=== PATIENT | male | born 1960 | race African-American/Black ===

== ENCOUNTER 2020-07-26 13:34 | Emergency (ER) | payer BC ==
[~2020-07-26] VITALS: Ht 175.3 cm; Wt 135.7 kg
[2020-07-26] MEDS ORDERED: ACETAMINOPHEN 500 MG TABLET PO ONE (15:30)
[2020-07-26] MEDS ORDERED: IBUPROFEN 400 MG TABLET. PO ONE (15:30)
[2020-07-26 15:39] LABS: INFLUENZA A PATIENT POSITIVE (NEGATIVE); INFLUENZA B PATIENT NEGATIVE (NEGATIVE)
--- NOTE | 2020-07-26 16:05 | ED.ADGEN ---
Past Medical History Past Medical History: Hypertension Past Surgical History: Appendectomy Additional Past Surgical Histo: KNEE, vein surgery left leg Smoking Status: Never Smoker Alcohol Use: None Drug Use: None General Adult EDM: Chief Complaint: COUGH HPI: HPI: Patient is a 59 year old AA male who presents to the emergency department with complaints of a dry cough, shortness of breath, body aches, and fatigue that has been worse over the last 5 days. Patient states he initially started feeling ill about a week ago. He thought that it was just due to him being overweight. He denies any chest pain, palpitations, abdominal pain, nausea, vomiting, diarrhea, rash, or sore throat. He states he has felt hot and has been chilling but denies measured fever. He currently denies any pain. He denies any known Covid exposure. Review of Systems: Review of Systems: Complete ROS is negative unless otherwise noted in HPI. Current Medications: Current Medications Medications (Trade) Dose Ordered Sig/Andrew Start Time Stop Time Status Last Admin Dose Admin Acetaminophen (Tylenol) 1,000 mg 1X ONCE 07/26/20 15:30 07/26/20 15:31 DC Ibuprofen (Motrin) 800 mg 1X ONCE 07/26/20 15:30 07/26/20 15:31 DC Allergies: Allergies: Allergies Coded Allergies Type Severity Reaction Last Updated Verified No Known Drug Allergies 07/26/20 No Physical Exam: PE: See Above Constitutional: Well developed, well nourished, no acute distress, ill appearance, obese HENT: Normocephalic, atraumatic, bilateral external ears normal, nose congested Eyes: PERRLA, conjunctiva injected bilaterally, no discharge. [] Neck: Normal range of motion, no stridor. [] Cardiovascular:Heart rate regular rhythm Lungs & Thorax: Respirations even and unlabored, no retractions, no respiratory distress Skin: Warm, dry, no erythema, no rash. [] Back: No tenderness Extremities: No cyanosis, ROM intact Neurologic: Alert and oriented X 3, no focal deficits noted. [] Psychologic: Affect normal, judgement normal, mood normal. Current Patient Data: Labs: Laboratory Tests Test 07/26/20 14:55 Influenza Type A Antigen Positive (NEGATIVE) Influenza Type B Antigen Negative (NEGATIVE) Vital Signs: Vital Signs Date Time Temp Pulse Resp B/P (MAP) Pulse Ox O2 Delivery O2 Flow Rate FiO2 07/26/20 14:44 103.0 112 24 149/68 (95) 97 Room Air 103.0 EKG: EKG: [] Heart Score: Risk Factors: Risk Factors: DM, Current or recent (<one month) smoker, HTN, HLP, family history of CAD, obesity. Risk Scores: Score 0 - 3: 2.5% MACE over next 6 weeks - Discharge Home Score 4 - 6: 20.3% MACE over next 6 weeks - Admit for Clinical Observation Score 7 - 10: 72.7% MACE over next 6 weeks - Early Invasive Strategies Radiology/Procedures: Radiology/Procedures: [] Course & Med Decision Making: Course & Med Decision Making Pertinent Labs and Imaging studies reviewed. (See chart for details) [] Dragon Disclaimer: Dragon Disclaimer: This electronic medical record was generated, in whole or in part, using a voice recognition dictation system. Departure Departure Impression: Primary Impression: Influenza A Additional Impressions: Person under investigation for COVID-19 Fever Disposition: 01 DC HOME SELF CARE/HOMELESS Condition: STABLE Referrals: NO PCP (PCP) Patient Instructions: Influenza A (H1N1) Additional Instructions: Alternate Tylenol or ibuprofen as needed for pain/fever. Increase clear fluids. Avoid airway triggers such as smoke, fragrance, dust, and pollen. May take [id number] cough suppressants as needed. Follow-up with your primary care doctor if symptoms persist, return to the ER if symptoms worsen. You have been tested for or diagnosed with COVID-19. It is an infection caused by a new type of coronavirus. COVID-19 will cause cold-like or mild flu symptoms in most. It can cause more severe symptoms like problems breathing in some. There is no treatment for COVID-19. The body will clear the infection over time. Self-care will help to ease discomfort. Steps to Take: Self-Care Rest as needed. Healthy habits may help you feel better. Steps include: Choose healthy foods including fruits and vegetables. Drink water throughout the day. Get plenty of sleep each night. If you smoke, try to quit. It may ease breathing. Avoid alcohol. Keep Others Healthy The virus can spread to others. Droplets are released every time you sneeze or cough. The droplets can get into the mouth, nose, or eyes of people near you and lead to infection. To lower the chances of spreading COVID-19 to others: Stay at home until your doctor has said it is safe to leave. If you tested positive this will mean staying isolated until both of the following are true: At least 7 days have passed since the start of illness. You are free of fever for at least 72 hours without the use of medicine. During this time: - Avoid public areas, events, or transportation. Do not return to work or school until your doctor has said it is safe to do so. - Call ahead if you need to go to a medical center. Let them know you may have COVID-19. It will help them guide you where to go. They may also ask you to wear a facemask when you come to the office. - If you call for emergency medical services, let them know you may have COVID- 19. While at home: - Try to avoid close contact with others. Stay about 6 feet away. - If possible, spend most of your time in a separate room from others. - Use a face mask if you will be in close contact with others such as sharing a room or vehicle. - Have someone wipe down common surfaces in the home. Use household child day care provider every day on areas like doorknobs, counters, or sinks. - Cough or sneeze into a tissue. Throw the tissue away right after use. If a tissue is not available, cough or sneeze into your elbow. - Wash your hands often. Wash them after sneezing or coughing. Use soap and water and wash for at least 20 seconds. Alcohol based hand spice cleaner can be used if soap and water is not available. - Do not prepare food for others. Avoid sharing personal items like forks, spoons, or toothbrushes. - Avoid close contact with pets while you are sick. There is no evidence of the virus passing to pets. This is a safety step until more is known about this virus. Isolation can be frustrating. Social interaction can help. Keep in touch with friends and family through phone and tech options. You can still interact with others in your home, just keep a safe distance of about 6 feet. Follow-up: Your doctors office will check in with you to see if there are any changes in your health. You may be asked to keep track of symptoms to share with them. They will also let you know when you are clear to be in public again. Problems to Look Out For: Contact your doctor if your recovery is not going as you expect. Get emergency care if you have problems such as: - Trouble breathing - Nonstop chest pain or pressure - Changes in awareness, confusion, or problems waking - Lips or face have bluish color - Worsening of symptoms If you think you have an emergency, call for emergency medical services right away. As taken from [facility] [address] [place] [address] [facility] [address] [place] [address] [facility] [address] [facility] [place] [address] [facility] [address] [place] [address] [facility] [address] [place] [address] [facility] [address] [place] [address] [facility] [address] [place] [address] [facility] [address] [place] [address] [facility] [address] [place] [address] [facility] Department [address] [place] [address] Problem Qualifiers Additional Impressions: Fever Fever type: unspecified Qualified Codes: R50.9 - Fever, unspecified DAVONTE GUZMAN [employer] ENTRY WRITER Jul 26, 2020 16:05
[2020-07-26 16:21] VITALS: BP 137/74
--- NOTE | 2020-07-26 16:46 | RAD ---
INDICATION: Reason: pui / Spl. Instructions: / History: COMPARISON: None. FINDINGS: Single view of chest obtained. Cardiac silhouette is near upper limits of normal in size. No definite focal airspace consolidation or pulmonary edema. Mild prominence of the bilateral pulmonary hilum. IMPRESSION: * No definite focal airspace consolidation. Electronically signed by: Dejan Kohler MD (07/26/2020 3:23 PM) [id number]
== END 2020-07-26 16:26 | disposition home or self-care (01) ==
LOC: ER 13:34
DX: U07.1 COVID-19 (principal); J09.X2 Influenza due to identified novel influenza A virus with other respiratory manifestations; I10 Essential (primary) hypertension
CPT/HCPCS: 71045; 87804; 99284; C9803; U0003